=== PATIENT | female | born 1935 | race Caucasian/White ===

== ENCOUNTER 2020-09-13 09:27 | Inpatient (IN) ==
[2020-09-13] MEDS ORDERED: Morphine Sulfate 2 MG/ML SYRINGE IVP ONE (10:34)
[2020-09-13] MEDS ORDERED: Ondansetron 4 MG/2 ML VIAL IVP ONE (10:34)
[2020-09-13 10:43] LABS: Bacteria,Urine Moderate per hpf (None-Few); Bilirubin,Urine Negative (Negative); Blood,Urine Negative (Negative); Clarity,Urine Turbid (Clear); Color,Urine Yellow (Yellow); Glucose,Urine (UA) Normal (Normal); Ketones,Urine Negative (Negative); Leukocyte Esterase,Urine Large (Negative); Mucus,Urine Few per lpf (None-Few); Nitrite,Urine Negative (Negative); PH,Urine 6.5 pH Units (5.0-8.0); Protein,Urine 30 mg/dL (Neg-Trace); WBC,Urine TNTC per hpf (0-3)
[2020-09-13] MEDS ORDERED: cefTRIAXone 1,000 MG in Water for inj. (sterile) 10 ML IVP ONE (12:12)
[2020-09-13 12:24] LABS: Hemoglobin 13.4 g/dL (11.5-15.4); Immature Granulocytes % 0.3 % (0-4)
[2020-09-13] MEDS: Morphine Sulfate 2 MG/ML SYRINGE IVP ONE ×2 (12:24→13:43)
[2020-09-13 12:26] LABS: Basophils % 0.2 %; Eosinophils % 0.3 %; Hematocrit 39.2 % (35.3-44.9); Immature Platelets 2.1 % (1.1-6.1); Lymphocytes # 1.2 K/mcL (0.6-4.6); Lymphocytes % 12.9 %; Mean Corpuscular HGB Conc 34.2 g/dL (31.6-35.5); Mean Corpuscular Hemoglobin 30.4 pg (28.0-33.3); Mean Corpuscular Volume 88.9 fL (83.0-100.0); Monocytes # 0.8 K/mcL (0.0-1.3); Monocytes % 7.9 %; Neutrophils # 7.5 K/mcL (1.6-8.9); Platelet Count 128 K/mcL (140-400); Red Blood Count 4.41 M/mcL (3.82-4.97); Red Cell Distribution Width 12.8 % (11.5-14.5); Segmented Neutrophils % 78.4 %; White Blood Count 9.6 K/mcL (4.3-11.1)
[2020-09-13 12:33] LABS: BUN/Creatinine Ratio 26 (6-26); Blood Urea Nitrogen 28 mg/dL (8-23); Calcium 9.4 mg/dL (8.6-10.3); Carbon Dioxide 23 mEq/L (23-29); Chloride 97 mEq/L (98-107); Glucose 101 mg/dL (70-105); Osmolality,Calculated 270 (280-300); Potassium 3.5 mEq/L (3.5-5.1); Sodium 127 mEq/L (136-145); Troponin I < 0.03 ng/mL (< 0.04); eGFR For African Americans 59 (> 60); eGFR For Non-African Americans 49 (> 60)
[2020-09-13] MEDS: Lidocaine -MPF 2% 5 ML VIAL INFILT ONE ×2 (14:09→14:48)
[2020-09-13] MEDS ORDERED: 0.9 % Sodium Chloride 1,000 ML IVC ONE (14:21)
[2020-09-13] MEDS ORDERED: Ondansetron 4 MG/2 ML VIAL IVP PRN (14:43)
[2020-09-13] MEDS ORDERED: Naloxone 0.4 MG/ML INJ IVP PRN (14:43)
[2020-09-13] MEDS ORDERED: 0.9 % Sodium Chloride 1,000 ML IVC SCH (14:45)
[2020-09-13] MEDS ORDERED: *HR* HYDROmorphone PF 0.5 MG/0.5 ML SYRINGE IVP PRN (14:47)
[2020-09-13] MEDS ORDERED: Perflutren Lipid Microsphere 1.3 ML in 0.9 % Sodium Chloride 8.7 ML IVP PRN (14:47)
[2020-09-13] MEDS: *HR* Heparin 5,000 UNIT/ML VIAL SQ SCH (17:32)
[2020-09-13] MEDS ORDERED: *HR* LORazepam 2 MG/ML VIAL IVP ONE (20:18)
[2020-09-14 02:15] LABS: Basophils % 0.1 %; Hematocrit 37.9 % (35.3-44.9); Hemoglobin 12.4 g/dL (11.5-15.4); Immature Granulocytes % 0.4 % (0-4); Lymphocytes # 0.9 K/mcL (0.6-4.6); Lymphocytes % 8.6 %; Mean Corpuscular HGB Conc 32.7 g/dL (31.6-35.5); Mean Corpuscular Volume 91.5 fL (83.0-100.0); Mean Platelet Volume 9.8 fL (9.4-12.4); Monocytes # 0.9 K/mcL (0.0-1.3); Monocytes % 8.1 %; Neutrophils # 8.7 K/mcL (1.6-8.9); Platelet Count 107 K/mcL (140-400); Red Blood Count 4.14 M/mcL (3.82-4.97); Segmented Neutrophils % 82.8 %; White Blood Count 10.5 K/mcL (4.3-11.1)
[2020-09-14 02:35] LABS: BUN/Creatinine Ratio 29 (6-26); Blood Urea Nitrogen 28 mg/dL (8-23); Calcium 9.1 mg/dL (8.6-10.3); Carbon Dioxide 26 mEq/L (23-29); Chloride 101 mEq/L (98-107); Glucose 125 mg/dL (70-105); Osmolality,Calculated 279 (280-300); Potassium 3.4 mEq/L (3.5-5.1); Sodium 131 mEq/L (136-145); eGFR For African Americans > 60 (> 60); eGFR For Non-African Americans 54 (> 60)
[2020-09-14] MEDS: *HR* HYDROmorphone (PF) 1 MG/ML SYRINGE IVP PRN (02:44)
[2020-09-14] MEDS: *HR* Heparin 5,000 UNIT/ML VIAL SQ SCH ×2 (05:18→17:57)
[2020-09-14] MEDS: cefTRIAXone 1,000 MG in Water for inj. (sterile) 10 ML IVP SCH (09:32)
[2020-09-15 01:49] LABS: Mean Corpuscular HGB Conc 32.6 g/dL (31.6-35.5); Red Cell Distribution Width 13.2 % (11.5-14.5)
[2020-09-15 01:51] LABS: Hematocrit 33.7 % (35.3-44.9); Immature Platelets 1.9 % (1.1-6.1); Mean Corpuscular Hemoglobin 30.6 pg (28.0-33.3); Mean Corpuscular Volume 93.6 fL (83.0-100.0); Mean Platelet Volume 10.1 fL (9.4-12.4); Red Blood Count 3.6 M/mcL (3.82-4.97); White Blood Count 8.8 K/mcL (4.3-11.1)
[2020-09-15 02:09] LABS: BUN/Creatinine Ratio 25 (6-26); Blood Urea Nitrogen 25 mg/dL (8-23); Calcium 9.1 mg/dL (8.6-10.3); Carbon Dioxide 25 mEq/L (23-29); Chloride 100 mEq/L (98-107); Glucose 98 mg/dL (70-105); Osmolality,Calculated 272 (280-300); Potassium 3.9 mEq/L (3.5-5.1); Sodium 129 mEq/L (136-145); eGFR For African Americans > 60 (> 60); eGFR For Non-African Americans 52 (> 60)
[2020-09-15] MEDS: *HR* Heparin 5,000 UNIT/ML VIAL SQ SCH ×2 (05:35→17:51)
[2020-09-15] MEDS: *HR* HYDROmorphone (PF) 1 MG/ML SYRINGE IVP PRN (06:44)
[2020-09-15] MEDS ORDERED: Ringers Solution, Lactated 1,000 ML IVC SCH ×2 (07:15→11:10)
[2020-09-15] MEDS ORDERED: Dexamethasone 4 MG/ML VIAL ONE (07:18)
[2020-09-15] MEDS ORDERED: Lidocaine -MPF 2% 2 ML VIAL ONE (07:18)
[2020-09-15] MEDS ORDERED: Ondansetron 4 MG/2 ML VIAL ONE (07:18)
[2020-09-15] MEDS ORDERED: *HR* FentaNYL (PF) 100 MCG/2 ML VIAL ONE (07:19)
[2020-09-15] MEDS ORDERED: *HR* Propofol 200 MG/20 ML VIAL IVP ONE (07:19)
[2020-09-15] MEDS: cefTRIAXone 1,000 MG in Water for inj. (sterile) 10 ML IVP SCH ×2 (07:28→08:14)
[2020-09-15] MEDS ORDERED: Ropivacaine/PF 0.5% 30 ML VIAL ONE (07:28)
[2020-09-15] MEDS ORDERED: *HR* PHENYLEPHRINE 1,000 MCG/10 ML SYRINGE IVP ONE ×2 (08:26→08:42)
[2020-09-15] MEDS ORDERED: *HR* Phenylephrine 10 MG/ML VIAL ONE (08:55)
[2020-09-15] MEDS: *HR* HYDROmorphone PF 0.5 MG/0.5 ML SYRINGE IVP PRN ×3 (10:54→11:04)
[2020-09-15] MEDS ORDERED: 0.9 % Sodium Chloride 1,000 ML IVC SCH ×2 (11:00→11:10)
[2020-09-15] MEDS ORDERED: Perflutren Lipid Microsphere 1.3 ML in 0.9 % Sodium Chloride 8.7 ML IVP PRN (11:10)
[2020-09-15] MEDS ORDERED: Naloxone 0.4 MG/ML INJ IVP PRN (11:10)
[2020-09-15] MEDS ORDERED: *HR* HYDROmorphone PF 0.5 MG/0.5 ML SYRINGE IVP PRN (11:10)
[2020-09-15] MEDS ORDERED: *HR* HYDROmorphone (PF) 1 MG/ML SYRINGE IVP PRN (11:10)
[2020-09-15] MEDS ORDERED: Ondansetron 4 MG/2 ML VIAL IVP PRN (11:10)
[2020-09-16 04:40] LABS: Mean Corpuscular Volume 92.6 fL (83.0-100.0); Red Cell Distribution Width 12.8 % (11.5-14.5)
[2020-09-16 04:42] LABS: Hematocrit 31.1 % (35.3-44.9); Hemoglobin 10.2 g/dL (11.5-15.4); Immature Platelets 2.6 % (1.1-6.1); Mean Corpuscular HGB Conc 32.8 g/dL (31.6-35.5); Mean Corpuscular Hemoglobin 30.4 pg (28.0-33.3); Mean Platelet Volume 10.1 fL (9.4-12.4); Red Blood Count 3.36 M/mcL (3.82-4.97); White Blood Count 9.2 K/mcL (4.3-11.1)
[2020-09-16] MEDS: *HR* Heparin 5,000 UNIT/ML VIAL SQ SCH ×2 (04:49→17:02)
[2020-09-16 04:51] LABS: BUN/Creatinine Ratio 32 (6-26); Blood Urea Nitrogen 25 mg/dL (8-23); Calcium 8.7 mg/dL (8.6-10.3); Carbon Dioxide 27 mEq/L (23-29); Chloride 102 mEq/L (98-107); Glucose 102 mg/dL (70-105); Osmolality,Calculated 277 (280-300); Potassium 4.1 mEq/L (3.5-5.1); Sodium 131 mEq/L (136-145); eGFR For African Americans > 60 (> 60); eGFR For Non-African Americans > 60 (> 60)
[2020-09-16] MEDS: cefTRIAXone 1,000 MG in Water for inj. (sterile) 10 ML IVP SCH (08:14)
[2020-09-16] MEDS: Acetaminophen 325 MG TABLET PO PRN (17:01)
[2020-09-17] MEDS ORDERED: VISINE TEARS DROPS 15 ML BOTH EYES PRN (05:41)
[2020-09-17] MEDS: *HR* Heparin 5,000 UNIT/ML VIAL SQ SCH ×2 (06:26→18:18)
[2020-09-17] MEDS ORDERED: Artificial Tears SOLN 15 ML BOTTLE BOTH EYES PRN (07:00)
[2020-09-17] MEDS: cefTRIAXone 1,000 MG in Water for inj. (sterile) 10 ML IVP SCH (07:44)
[2020-09-17] MEDS: polyethylene glycoL 3350 17 GM POWD.PACK PO SCH ×2 (09:49→22:40)
[2020-09-17] MEDS: Sennosides/Docusate Sodium TABLET PO SCH (22:39)
[2020-09-18] MEDS: Acetaminophen 325 MG TABLET PO PRN (04:04)
[2020-09-18] MEDS: *HR* Heparin 5,000 UNIT/ML VIAL SQ SCH (06:25)
[2020-09-18] MEDS: Sennosides/Docusate Sodium TABLET PO SCH (09:00)
[2020-09-18] MEDS: polyethylene glycoL 3350 17 GM POWD.PACK PO SCH (09:00)
[2020-09-18] MEDS ORDERED: Milk and Molasses Enema 200 ML RC ONE (09:08)
[2020-09-18] MEDS: cefTRIAXone 1,000 MG in Water for inj. (sterile) 10 ML IVP SCH (09:22)
[2020-09-18] MEDS ORDERED: 0.9 % Sodium Chloride 1,000 ML IVC ONE (10:04)
[2020-09-18] MEDS ORDERED: *HR* Metoprolol 5 MG/5 ML VIAL IVP ONE (10:05)
[2020-09-18] MEDS ORDERED: Metoprolol XL (24 HR) Succ 25 MG TAB.ER.24H PO SCH (10:15)
[2020-09-18] MEDS ORDERED: *HR* Rivaroxaban 15 MG TABLET PO SCH ×2 (17:00)
[2020-09-18] MEDS ORDERED: *HR* Rivaroxaban 10 MG TABLET PO SCH (18:45)
[2020-09-18 19:05] LABS: Influenza A PCR Negative (Negative); Influenza B PCR Negative (Negative); Resp. Syncytial Virus PCR Negative (Negative)
[2020-09-18 19:06] LABS: SARS-CoV-2 by PCR (In House) Negative (Negative)
[2020-09-18 19:19] VITALS: BP 102/67
== END 2020-09-18 20:25 | disposition home health service (06) | DRG 493 ==
LOC: EMEROOARM 09:27 → 3NENU 09:27 → SUATTDRO 13:43 → 3NENU 15:50 → SUATTDRO 09-14 14:44
PROVIDERS: ADMIT Internal Medicine; ATTEND Student in an Organized Health Care Education/Training Program

== ENCOUNTER 2020-10-23 18:05 | Inpatient (IN) ==
[2020-10-23] MEDS ORDERED: Naloxone 0.4 MG/ML INJ IVP PRN (22:23)
[2020-10-23] MEDS ORDERED: Ondansetron 4 MG/2 ML VIAL IVP PRN (22:23)
[2020-10-24 03:54] LABS: Basophils % 0.4 %; Eosinophils # 0.2 K/mcL (0.0-0.6); Eosinophils % 2.1 %; Hematocrit 33.5 % (35.3-44.9); Hemoglobin 10.5 g/dL (11.5-15.4); Immature Granulocytes % 0.4 % (0-4); Lymphocytes # 1.1 K/mcL (0.6-4.6); Lymphocytes % 11.8 %; Mean Corpuscular HGB Conc 31.3 g/dL (31.6-35.5); Mean Corpuscular Hemoglobin 29.8 pg (28.0-33.3); Mean Corpuscular Volume 95.2 fL (83.0-100.0); Mean Platelet Volume 8.7 fL (9.4-12.4); Monocytes # 0.7 K/mcL (0.0-1.3); Monocytes % 7.8 %; Neutrophils # 7.1 K/mcL (1.6-8.9); Platelet Count 205 K/mcL (140-400); Red Blood Count 3.52 M/mcL (3.82-4.97); Red Cell Distribution Width 13.3 % (11.5-14.5); Segmented Neutrophils % 77.5 %; White Blood Count 9.2 K/mcL (4.3-11.1)
[2020-10-24 04:14] LABS: Alanine Aminotransferase 13 Units/L (7-52); Albumin 2.9 g/dL (3.5-5.7); Albumin/Globulin Ratio 0.8 (1.1-2.2); Alkaline Phosphatase 68 Units/L (34-104); Aspartate Amino Transferase 18 Units/L (13-39); BUN/Creatinine Ratio 27 (6-26); Bilirubin,Total 0.6 mg/dL (0.3-1.0); Blood Urea Nitrogen 17 mg/dL (8-23); Calcium 8.5 mg/dL (8.6-10.3); Carbon Dioxide 22 mEq/L (23-29); Chloride 110 mEq/L (98-107); Globulin 3.5 g/dL (2.4-3.5); Glucose 99 mg/dL (70-105); Osmolality,Calculated 290 (280-300); Phosphorous 1.8 mg/dL (2.7-4.5); Sodium 139 mEq/L (136-145); Total Protein 6.4 g/dL (6.4-8.9); Troponin I < 0.03 ng/mL (< 0.04); eGFR For African Americans > 60 (> 60); eGFR For Non-African Americans > 60 (> 60)
[2020-10-24] MEDS ORDERED: Isovue-370 500 ML BOTTLE IVP ONE (07:37)
[2020-10-24] MEDS ORDERED: Sennosides/Docusate Sodium TABLET PO SCH (09:00)
[2020-10-24] MEDS ORDERED: Perflutren Lipid Microsphere 1.3 ML in 0.9 % Sodium Chloride 8.7 ML IVP PRN (09:22)
[2020-10-24] MEDS: Levalbuterol Neb 1.25 MG/3 ML IH SCH ×3 (09:53→22:42)
[2020-10-24] MEDS: *HR* Digoxin 0.5 MG/2 ML AMPUL IVP ONE ×2 (10:03→12:30)
[2020-10-24] MEDS ORDERED: *HR* LORazepam 0.5 MG TABLET PO PRN (12:43)
[2020-10-24] MEDS ORDERED: Sennosides/Docusate Sodium TABLET PO PRN (12:43)
[2020-10-24] MEDS: *HR* Rivaroxaban 10 MG TABLET PO SCH (16:03)
[2020-10-24 16:50] LABS: Total Protein,Pleural Fluid 3.3 g/dL
[2020-10-24 17:26] LABS: Appearance of Pleural Fl Cloudy (Clear)
[2020-10-24 17:29] LABS: Basophils,Pleural Fluid 0 %; Eosinophils,Pleural Fluid 0 %
[2020-10-24] MEDS ORDERED: Ondansetron ODT 4 MG TAB.RAPDIS SL SCH (18:00)
[2020-10-24 19:45] LABS: Lactate Dehydrogenase 155 Units/L (140-271); Total Protein 6.4 g/dL (6.4-8.9)
[2020-10-24] MEDS ORDERED: *HR* Metoprolol 5 MG/5 ML VIAL IVP ONE (20:17)
[2020-10-24] MEDS: Mirtazapine 15 MG TABLET PO SCH (20:44)
[2020-10-24] MEDS: Furosemide 20 MG/2 ML VIAL IVP SCH (20:44)
[2020-10-25 00:43] LABS: Basophils % 0.2 %; Eosinophils # 0.2 K/mcL (0.0-0.6); Eosinophils % 1.5 %; Hemoglobin 11.3 g/dL (11.5-15.4); Immature Granulocytes % 0.5 % (0-4); Lymphocytes # 1.3 K/mcL (0.6-4.6); Mean Corpuscular HGB Conc 32.3 g/dL (31.6-35.5); Mean Corpuscular Hemoglobin 30.7 pg (28.0-33.3); Mean Corpuscular Volume 95.1 fL (83.0-100.0); Monocytes # 0.9 K/mcL (0.0-1.3); Monocytes % 8.5 %; Neutrophils # 7.7 K/mcL (1.6-8.9); Platelet Count 222 K/mcL (140-400); Red Blood Count 3.68 M/mcL (3.82-4.97); Red Cell Distribution Width 13.2 % (11.5-14.5); Segmented Neutrophils % 76.3 %; White Blood Count 10.1 K/mcL (4.3-11.1)
[2020-10-25 00:59] LABS: BUN/Creatinine Ratio 23 (6-26); Blood Urea Nitrogen 15 mg/dL (8-23); Calcium 8.2 mg/dL (8.6-10.3); Carbon Dioxide 25 mEq/L (23-29); Chloride 107 mEq/L (98-107); Glucose 97 mg/dL (70-105); Magnesium 1.9 mg/dL (1.6-2.6); Osmolality,Calculated 285 (280-300); Phosphorous 2.2 mg/dL (2.7-4.5); Potassium 3.5 mEq/L (3.5-5.1); Sodium 137 mEq/L (136-145); eGFR For African Americans > 60 (> 60); eGFR For Non-African Americans > 60 (> 60)
[2020-10-25] MEDS: Levalbuterol Neb 1.25 MG/3 ML IH SCH ×4 (04:08→21:49)
[2020-10-25] MEDS: Loratadine 10 MG TABLET PO SCH (08:34)
[2020-10-25] MEDS: Cholecalciferol (D-3) 1,000 UNIT (25MCG) TABLET PO SCH (08:35)
[2020-10-25] MEDS: Furosemide 20 MG/2 ML VIAL IVP SCH ×2 (08:35→20:52)
[2020-10-25] MEDS ORDERED: Isovue-370 500 ML BOTTLE IVP ONE (14:23)
[2020-10-25] MEDS: *HR* Rivaroxaban 10 MG TABLET PO SCH (16:30)
[2020-10-25] MEDS ORDERED: *HR* Digoxin 0.5 MG/2 ML AMPUL IVP ONE (18:20)
[2020-10-25] MEDS: Mirtazapine 15 MG TABLET PO SCH (20:52)
[2020-10-26] MEDS: Levalbuterol Neb 1.25 MG/3 ML IH SCH ×4 (03:16→21:34)
[2020-10-26] MEDS: Loratadine 10 MG TABLET PO SCH (08:09)
[2020-10-26] MEDS: Cholecalciferol (D-3) 1,000 UNIT (25MCG) TABLET PO SCH (08:09)
[2020-10-26 08:42] LABS: BUN/Creatinine Ratio 20 (6-26); Blood Urea Nitrogen 15 mg/dL (8-23); Calcium 8.7 mg/dL (8.6-10.3); Carbon Dioxide 29 mEq/L (23-29); Chloride 101 mEq/L (98-107); Glucose 95 mg/dL (70-105); Osmolality,Calculated 283 (280-300); Sodium 136 mEq/L (136-145); eGFR For African Americans > 60 (> 60); eGFR For Non-African Americans > 60 (> 60)
[2020-10-26] MEDS: Furosemide 20 MG/2 ML VIAL IVP SCH (09:33)
[2020-10-26 12:45] LABS: Magnesium 1.8 mg/dL (1.6-2.6); Phosphorous 2.5 mg/dL (2.7-4.5)
[2020-10-26] MEDS: Acetaminophen 325 MG TABLET PO PRN (14:14)
[2020-10-26] MEDS: *HR* Rivaroxaban 10 MG TABLET PO SCH (17:54)
[2020-10-26] MEDS: Mirtazapine 15 MG TABLET PO SCH (21:11)
[2020-10-26 22:51] LABS: Fluid Source for Cholesterol PLEURAL FLUID
[2020-10-27] MEDS: Levalbuterol Neb 1.25 MG/3 ML IH SCH ×4 (03:37→22:09)
[2020-10-27 07:47] LABS: BUN/Creatinine Ratio 23 (6-26); Blood Urea Nitrogen 17 mg/dL (8-23); Calcium 8.5 mg/dL (8.6-10.3); Carbon Dioxide 29 mEq/L (23-29); Chloride 102 mEq/L (98-107); Glucose 93 mg/dL (70-105); Magnesium 1.8 mg/dL (1.6-2.6); Osmolality,Calculated 281 (280-300); Potassium 3.1 mEq/L (3.5-5.1); Sodium 135 mEq/L (136-145); eGFR For African Americans > 60 (> 60); eGFR For Non-African Americans > 60 (> 60)
[2020-10-27] MEDS: Loratadine 10 MG TABLET PO SCH (09:19)
[2020-10-27] MEDS: Cholecalciferol (D-3) 1,000 UNIT (25MCG) TABLET PO SCH (09:19)
[2020-10-27] MEDS: Furosemide 20 MG TABLET PO SCH (09:19)
[2020-10-27 10:16] LABS: Cholesterol,Body Fluid 54 mg/dL
[2020-10-27] MEDS ORDERED: Potassium Phosphate 44 MEQ in 0.9 % Sodium Chloride 250 ML IVPB ONE (11:13)
[2020-10-27] MEDS: *HR* Rivaroxaban 10 MG TABLET PO SCH (15:41)
[2020-10-27] MEDS: Acetaminophen 325 MG TABLET PO PRN (15:41)
[2020-10-27] MEDS: Mirtazapine 15 MG TABLET PO SCH (21:57)
[2020-10-28 01:42] LABS: BUN/Creatinine Ratio 28 (6-26); Blood Urea Nitrogen 22 mg/dL (8-23); Calcium 8.8 mg/dL (8.6-10.3); Carbon Dioxide 26 mEq/L (23-29); Chloride 102 mEq/L (98-107); Glucose 99 mg/dL (70-105); Magnesium 1.9 mg/dL (1.6-2.6); Osmolality,Calculated 283 (280-300); Phosphorous 3.3 mg/dL (2.7-4.5); Potassium 3.4 mEq/L (3.5-5.1); Sodium 135 mEq/L (136-145); eGFR For African Americans > 60 (> 60); eGFR For Non-African Americans > 60 (> 60)
[2020-10-28] MEDS: Levalbuterol Neb 1.25 MG/3 ML IH SCH ×4 (04:15→22:21)
[2020-10-28] MEDS: Cholecalciferol (D-3) 1,000 UNIT (25MCG) TABLET PO SCH (08:33)
[2020-10-28] MEDS: Furosemide 20 MG TABLET PO SCH (08:33)
[2020-10-28] MEDS: Loratadine 10 MG TABLET PO SCH (08:33)
[2020-10-28] MEDS ORDERED: Levalbuterol Neb 1.25 MG/3 ML ONE (09:36)
[2020-10-28] MEDS: Acetaminophen 325 MG TABLET PO PRN ×2 (10:38→20:41)
[2020-10-28 11:59] LABS: Bacteria,Urine Few per hpf (None-Few); Bilirubin,Urine Negative (Negative); Blood,Urine Small (Negative); Clarity,Urine Clear (Clear); Color,Urine Yellow (Yellow); Glucose,Urine (UA) Normal (Normal); Ketones,Urine Negative (Negative); Leukocyte Esterase,Urine Negative (Negative); Mucus,Urine Few per lpf (None-Few); Nitrite,Urine Negative (Negative); PH,Urine 6.5 pH Units (5.0-8.0); Protein,Urine Trace mg/dL (Neg-Trace); RBC,Urine 15-30 per hpf (0-3); Specific Gravity,Urine 1.018 (1.010-1.025); WBC,Urine 0-3 per hpf (0-3)
[2020-10-28] MEDS: *HR* Rivaroxaban 10 MG TABLET PO SCH (16:25)
[2020-10-28] MEDS: Melatonin 3 MG TABLET PO PRN (20:42)
[2020-10-28] MEDS: Mirtazapine 15 MG TABLET PO SCH (20:42)
[2020-10-29] MEDS: Levalbuterol Neb 1.25 MG/3 ML IH SCH ×3 (03:35→15:43)
[2020-10-29 05:56] LABS: BUN/Creatinine Ratio 29 (6-26); Blood Urea Nitrogen 24 mg/dL (8-23); Calcium 8.6 mg/dL (8.6-10.3); Carbon Dioxide 27 mEq/L (23-29); Chloride 105 mEq/L (98-107); Glucose 93 mg/dL (70-105); Magnesium 1.8 mg/dL (1.6-2.6); Osmolality,Calculated 288 (280-300); Phosphorous 2.9 mg/dL (2.7-4.5); Potassium 3.4 mEq/L (3.5-5.1); Sodium 137 mEq/L (136-145); eGFR For African Americans > 60 (> 60); eGFR For Non-African Americans > 60 (> 60)
[2020-10-29] MEDS: Furosemide 20 MG TABLET PO SCH (07:51)
[2020-10-29] MEDS: Cholecalciferol (D-3) 1,000 UNIT (25MCG) TABLET PO SCH (07:51)
[2020-10-29] MEDS: Loratadine 10 MG TABLET PO SCH (07:51)
[2020-10-29] MEDS: *HR* Rivaroxaban 10 MG TABLET PO SCH (16:45)
[2020-10-29] MEDS ORDERED: Levalbuterol Neb 1.25 MG/3 ML IH PRN (20:01)
[2020-10-29] MEDS: Melatonin 3 MG TABLET PO PRN (21:03)
[2020-10-29] MEDS: Mirtazapine 15 MG TABLET PO SCH (21:03)
[2020-10-30] MEDS: Cholecalciferol (D-3) 1,000 UNIT (25MCG) TABLET PO SCH (08:08)
[2020-10-30] MEDS: Loratadine 10 MG TABLET PO SCH (08:08)
[2020-10-30] MEDS: Furosemide 20 MG TABLET PO SCH (08:08)
[2020-10-30] MEDS: *HR* Rivaroxaban 10 MG TABLET PO SCH (16:44)
[2020-10-30] MEDS: Mirtazapine 15 MG TABLET PO SCH (19:12)
[2020-10-31 07:14] LABS: Hematocrit 35.2 % (35.3-44.9); Hemoglobin 11.5 g/dL (11.5-15.4)
[2020-10-31 07:41] LABS: BUN/Creatinine Ratio 32 (6-26); Blood Urea Nitrogen 27 mg/dL (8-23); Calcium 8.9 mg/dL (8.6-10.3); Carbon Dioxide 25 mEq/L (23-29); Chloride 104 mEq/L (98-107); Glucose 93 mg/dL (70-105); Magnesium 1.9 mg/dL (1.6-2.6); Osmolality,Calculated 283 (280-300); Phosphorous 2.4 mg/dL (2.7-4.5); Potassium 3.4 mEq/L (3.5-5.1); Sodium 134 mEq/L (136-145); eGFR For African Americans > 60 (> 60); eGFR For Non-African Americans > 60 (> 60)
[2020-10-31] MEDS: Cholecalciferol (D-3) 1,000 UNIT (25MCG) TABLET PO SCH (12:31)
[2020-10-31] MEDS: Loratadine 10 MG TABLET PO SCH (12:32)
[2020-10-31] MEDS: Furosemide 20 MG TABLET PO SCH (12:35)
[2020-10-31] MEDS: Metoclopramide 10 MG/2 ML VIAL IVP SCH ×3 (12:57→17:18)
[2020-10-31] MEDS: Simethicone 80 MG TAB.CHEW PO SCH (21:31)
[2020-10-31] MEDS: Mirtazapine 15 MG TABLET PO SCH (21:31)
[2020-10-31] MEDS: *HR* Rivaroxaban 10 MG TABLET PO SCH (21:32)
[2020-11-01] MEDS: Metoclopramide 10 MG/2 ML VIAL IVP SCH ×2 (00:49→05:57)
[2020-11-01] MEDS: Furosemide 20 MG TABLET PO SCH ×2 (08:19→08:48)
[2020-11-01] MEDS: Simethicone 80 MG TAB.CHEW PO SCH (08:19)
[2020-11-01] MEDS: Loratadine 10 MG TABLET PO SCH (08:19)
[2020-11-01] MEDS: Cholecalciferol (D-3) 1,000 UNIT (25MCG) TABLET PO SCH (08:19)
[2020-11-01 09:32] LABS: BUN/Creatinine Ratio 30 (6-26); Blood Urea Nitrogen 24 mg/dL (8-23); Carbon Dioxide 27 mEq/L (23-29); Chloride 102 mEq/L (98-107); Glucose 109 mg/dL (70-105); Magnesium 1.9 mg/dL (1.6-2.6); Osmolality,Calculated 285 (280-300); Phosphorous 2.9 mg/dL (2.7-4.5); Potassium 3.3 mEq/L (3.5-5.1); Sodium 135 mEq/L (136-145); eGFR For African Americans > 60 (> 60); eGFR For Non-African Americans > 60 (> 60)
[2020-11-01 12:04] VITALS: BP 117/82
== END 2020-11-01 13:19 | disposition home health service (06) | DRG 291 ==
LOC: INTOOBSV 21:50 → 2NENU 21:50 → SUATTDRO 21:50
PROVIDERS: ADMIT Internal Medicine; ATTEND Internal Medicine

== ENCOUNTER 2021-05-26 19:11 | Inpatient (IN) ==
[2021-05-26 19:39] LABS: Basophils % 0.1 %; Eosinophils % 0.2 %; Hematocrit 39.1 % (35.3-44.9); Hemoglobin 12.8 g/dL (11.5-15.4); Immature Granulocytes % 0.3 % (0-4); Lymphocytes # 1.8 K/mcL (0.6-4.6); Lymphocytes % 15.1 %; Mean Corpuscular HGB Conc 32.7 g/dL (31.6-35.5); Mean Corpuscular Hemoglobin 30.7 pg (28.0-33.3); Mean Corpuscular Volume 93.8 fL (83.0-100.0); Monocytes # 1.3 K/mcL (0.0-1.3); Monocytes % 10.6 %; Neutrophils # 8.8 K/mcL (1.6-8.9); Platelet Count 187 K/mcL (140-400); Red Blood Count 4.17 M/mcL (3.82-4.97); Red Cell Distribution Width 12.7 % (11.5-14.5); Segmented Neutrophils % 73.7 %; White Blood Count 11.9 K/mcL (4.3-11.1)
[2021-05-26 19:46] LABS: INR 2.9; Prothrombin Time 31.8 Seconds (9.4-12.1)
[2021-05-26 19:56] LABS: Alanine Aminotransferase 46 Units/L (7-52); Albumin 2.9 g/dL (3.5-5.7); Albumin/Globulin Ratio 0.6 (1.1-2.2); Alkaline Phosphatase 97 Units/L (34-104); Aspartate Amino Transferase 32 Units/L (13-39); BUN/Creatinine Ratio 27 (6-26); Bilirubin,Direct 0.2 mg/dL (0.0-0.2); Bilirubin,Indirect 0.5 mg/dL (0.0-1.0); Bilirubin,Total 0.7 mg/dL (0.3-1.0); Blood Urea Nitrogen 25 mg/dL (8-23); Calcium 8.9 mg/dL (8.6-10.3); Carbon Dioxide 28 mEq/L (23-29); Chloride 96 mEq/L (98-107); Globulin 5.1 g/dL (2.4-3.5); Glucose 123 mg/dL (70-105); Osmolality,Calculated 274 (280-300); Potassium 3.1 mEq/L (3.5-5.1); Sodium 129 mEq/L (136-145); Troponin I < 0.03 ng/mL (< 0.04); eGFR For African Americans > 60 (> 60); eGFR For Non-African Americans 58 (> 60)
[2021-05-26] MEDS ORDERED: Furosemide 20 MG/2 ML VIAL IVP ONE (20:12)
[2021-05-26] MEDS ORDERED: Isovue-370 500 ML BOTTLE IVP ONE (20:42)
[2021-05-26 20:44] LABS: Influenza A PCR Negative (Negative); Influenza B PCR Negative (Negative); Resp. Syncytial Virus PCR Negative (Negative)
[2021-05-26 20:46] LABS: SARS-CoV-2 by PCR (In House) Negative (Negative)
[2021-05-26] MEDS ORDERED: Melatonin 3 MG TABLET PO PRN (21:19)
[2021-05-26] MEDS ORDERED: Naloxone 0.4 MG/ML INJ IVP PRN (21:19)
[2021-05-26] MEDS ORDERED: Ondansetron ODT 4 MG TAB.RAPDIS SL PRN (21:19)
[2021-05-26] MEDS ORDERED: *HR* Metoprolol 5 MG/5 ML VIAL IVP PRN (21:30)
[2021-05-26] MEDS ORDERED: *HR* Heparin 5,000 UNIT/ML VIAL IVP PRN ×2 (21:56)
[2021-05-26] MEDS ORDERED: *HR* Heparin 5,000 UNIT/ML VIAL IVP ONE (21:56)
[2021-05-26] MEDS ORDERED: Heparin 25,000UNIT/250ML 1/2NS 25,000 UNIT/250 ML IV.SOLN IVC SCH ×2 (22:00→22:30)
[2021-05-26] MEDS ORDERED: Heparin 25,000 UNIT/250 ML 25,000 UNIT/250 ML IV.SOLN IVC SCH (22:30)
[2021-05-26] MEDS ORDERED: Perflutren Lipid Microsphere 1.3 ML in 0.9 % Sodium Chloride 8.7 ML IVP PRN (23:08)
[2021-05-26] MEDS ORDERED: Potassium Chloride Elixir 20 MEQ/15 ML UDC PO ONE (23:35)
[2021-05-27 01:39] LABS: Hematocrit 41.2 % (35.3-44.9); Hemoglobin 13.5 g/dL (11.5-15.4); Mean Corpuscular HGB Conc 32.8 g/dL (31.6-35.5); Mean Corpuscular Hemoglobin 30.8 pg (28.0-33.3); Mean Corpuscular Volume 93.8 fL (83.0-100.0); Mean Platelet Volume 9.2 fL (9.4-12.4); Platelet Count 182 K/mcL (140-400); Red Blood Count 4.39 M/mcL (3.82-4.97); Red Cell Distribution Width 12.7 % (11.5-14.5); White Blood Count 15.2 K/mcL (4.3-11.1)
[2021-05-27 01:51] LABS: Prothrombin Time 21.9 Seconds (9.4-12.1)
[2021-05-27 01:53] LABS: Activated Partial Thrombo Time 68.6 Seconds (26.0-36.0)
[2021-05-27 02:04] LABS: BUN/Creatinine Ratio 30 (6-26); Blood Urea Nitrogen 24 mg/dL (8-23); Calcium 9.2 mg/dL (8.6-10.3); Carbon Dioxide 23 mEq/L (23-29); Chloride 98 mEq/L (98-107); Glucose 133 mg/dL (70-105); Osmolality,Calculated 274 (280-300); Potassium 3.4 mEq/L (3.5-5.1); Sodium 129 mEq/L (136-145); eGFR For African Americans > 60 (> 60); eGFR For Non-African Americans > 60 (> 60)
[2021-05-27] MEDS ORDERED: cefTRIAXone 1,000 MG in 0.9 % Sodium Chloride Mini Bag 100 ML IVPB SCH ×2 (04:00→04:30)
[2021-05-27 06:37] LABS: Lactate Dehydrogenase 134 Units/L (140-271); Total Protein 7.9 g/dL (6.4-8.9)
[2021-05-27 07:04] LABS: INR 1.8
[2021-05-27] MEDS: Acetaminophen 325 MG TABLET PO PRN (09:30)
[2021-05-27] MEDS: Furosemide 20 MG/2 ML VIAL IVP SCH (09:32)
[2021-05-27 10:56] LABS: Bacteria,Urine Few per hpf (None-Few); Bilirubin,Urine Negative (Negative); Blood,Urine Moderate (Negative); Clarity,Urine Clear (Clear); Color,Urine Yellow (Yellow); Glucose,Urine (UA) Normal (Normal); Ketones,Urine Negative (Negative); Leukocyte Esterase,Urine Negative (Negative); Nitrite,Urine Negative (Negative); Protein,Urine 30 mg/dL (Neg-Trace); RBC,Urine 15-30 per hpf (0-3); Specific Gravity,Urine > 1.030 (1.010-1.025); Urobilinogen,Urine Normal (Normal); WBC,Urine 0-3 per hpf (0-3)
[2021-05-27] MEDS ORDERED: *HR* Heparin 5,000 UNIT/ML VIAL IVP PRN (11:02)
[2021-05-27] MEDS ORDERED: *HR* Heparin 5,000 UNIT/ML VIAL IVP ONE (11:02)
[2021-05-27] MEDS: Albumin 25% 25gram/100mL 25 GM/100 ML IV.SOLN IVPB SCH ×3 (11:23→14:42)
[2021-05-27] MEDS ORDERED: 0.9 % Sodium Chloride 250 ML IVC ONE (14:35)
[2021-05-27] MEDS: Heparin 25,000 UNIT/250 ML 25,000 UNIT/250 ML IV.SOLN IVC SCH (14:43)
[2021-05-27 15:44] LABS: Total Protein,Pleural Fluid 5.3 g/dL
[2021-05-27 17:00] LABS: RBC,Pleural Fluid 158000 RBC/mcL
[2021-05-27 17:40] LABS: Appearance of Pleural Fl Bloody (Clear)
[2021-05-28] MEDS: Piperacillin/Tazobactam 3.375 GM in 0.9 % Sodium Chloride Mini Bag 100 ML IVPB SCH ×3 (00:29→16:35)
[2021-05-28 04:46] LABS: Hematocrit 32.7 % (35.3-44.9); Mean Corpuscular HGB Conc 32.1 g/dL (31.6-35.5); Mean Corpuscular Hemoglobin 30.2 pg (28.0-33.3); Mean Platelet Volume 9.2 fL (9.4-12.4); Platelet Count 130 K/mcL (140-400); Red Blood Count 3.48 M/mcL (3.82-4.97); Red Cell Distribution Width 12.9 % (11.5-14.5)
[2021-05-28 04:56] LABS: Hemoglobin 10.5 g/dL (11.5-15.4); White Blood Count 7.4 K/mcL (4.3-11.1)
[2021-05-28 05:04] LABS: BUN/Creatinine Ratio 33 (6-26); Blood Urea Nitrogen 25 mg/dL (8-23); Calcium 9.4 mg/dL (8.6-10.3); Carbon Dioxide 26 mEq/L (23-29); Chloride 102 mEq/L (98-107); Glucose 84 mg/dL (70-105); Magnesium 1.8 mg/dL (1.6-2.6); Osmolality,Calculated 278 (280-300); Potassium 3.1 mEq/L (3.5-5.1); Sodium 132 mEq/L (136-145); eGFR For African Americans > 60 (> 60); eGFR For Non-African Americans > 60 (> 60)
[2021-05-28] MEDS: Furosemide 20 MG/2 ML VIAL IVP SCH (11:16)
[2021-05-28] MEDS: Acetaminophen 325 MG TABLET PO PRN (12:45)
[2021-05-28] MEDS: Sennosides/Docusate Sodium TABLET PO SCH (13:23)
[2021-05-28] MEDS: Heparin 25,000 UNIT/250 ML 25,000 UNIT/250 ML IV.SOLN IVC SCH ×2 (13:23→21:14)
[2021-05-29] MEDS: Piperacillin/Tazobactam 3.375 GM in 0.9 % Sodium Chloride Mini Bag 100 ML IVPB SCH ×3 (01:48→15:36)
[2021-05-29 05:55] LABS: Basophils % 0.3 %; Eosinophils # 0.1 K/mcL (0.0-0.6); Eosinophils % 2.4 %; Hematocrit 34.1 % (35.3-44.9); Hemoglobin 11.1 g/dL (11.5-15.4); Immature Granulocytes % 0.2 % (0-4); Lymphocytes # 1.2 K/mcL (0.6-4.6); Lymphocytes % 20.3 %; Mean Corpuscular HGB Conc 32.6 g/dL (31.6-35.5); Mean Corpuscular Hemoglobin 30.4 pg (28.0-33.3); Mean Corpuscular Volume 93.4 fL (83.0-100.0); Monocytes # 0.6 K/mcL (0.0-1.3); Monocytes % 9.6 %; Neutrophils # 3.9 K/mcL (1.6-8.9); Platelet Count 142 K/mcL (140-400); Red Blood Count 3.65 M/mcL (3.82-4.97); Red Cell Distribution Width 12.9 % (11.5-14.5); Segmented Neutrophils % 67.2 %; White Blood Count 5.8 K/mcL (4.3-11.1)
[2021-05-29] MEDS: Acetaminophen 325 MG TABLET PO PRN ×3 (05:56→20:46)
[2021-05-29 06:21] LABS: BUN/Creatinine Ratio 33 (6-26); Blood Urea Nitrogen 29 mg/dL (8-23); Calcium 9.3 mg/dL (8.6-10.3); Carbon Dioxide 24 mEq/L (23-29); Chloride 104 mEq/L (98-107); Glucose 84 mg/dL (70-105); Osmolality,Calculated 283 (280-300); Potassium 3.1 mEq/L (3.5-5.1); Sodium 134 mEq/L (136-145); eGFR For African Americans > 60 (> 60); eGFR For Non-African Americans > 60 (> 60)
[2021-05-29] MEDS: *HR* Heparin 5,000 UNIT/ML VIAL IVP PRN ×2 (06:47→13:19)
[2021-05-29] MEDS: Furosemide 20 MG/2 ML VIAL IVP SCH (08:50)
[2021-05-29] MEDS: Sennosides/Docusate Sodium TABLET PO SCH (08:50)
[2021-05-29] MEDS ORDERED: DilTIAZem CD (24hr) 120 MG CAP.ER.24H PO SCH (09:00)
[2021-05-29] MEDS ORDERED: Albumin 25% 25gram/100mL 25 GM/100 ML IV.SOLN IVPB ONE (16:12)
[2021-05-29] MEDS: Albumin Human 5% 12.5 GM/250 ML IV.SOLN IVC SCH ×2 (18:41→20:40)
[2021-05-29] MEDS: Heparin 25,000UNIT/250ML 1/2NS 25,000 UNIT/250 ML IV.SOLN IVC SCH (23:41)
[2021-05-30] MEDS: Piperacillin/Tazobactam 3.375 GM in 0.9 % Sodium Chloride Mini Bag 100 ML IVPB SCH ×3 (01:24→15:27)
[2021-05-30 03:18] LABS: Basophils % 0.5 %; Eosinophils # 0.1 K/mcL (0.0-0.6); Eosinophils % 2.1 %; Hematocrit 32.6 % (35.3-44.9); Hemoglobin 10.5 g/dL (11.5-15.4); Immature Granulocytes % 0.5 % (0-4); Lymphocytes # 0.9 K/mcL (0.6-4.6); Lymphocytes % 14.7 %; Mean Corpuscular HGB Conc 32.2 g/dL (31.6-35.5); Mean Corpuscular Hemoglobin 30.4 pg (28.0-33.3); Mean Corpuscular Volume 94.5 fL (83.0-100.0); Mean Platelet Volume 9.2 fL (9.4-12.4); Monocytes # 0.4 K/mcL (0.0-1.3); Monocytes % 6.2 %; Neutrophils # 4.8 K/mcL (1.6-8.9); Nucleated Red Blood Cells 0.5 /100 WBC (0); Platelet Count 139 K/mcL (140-400); Red Blood Count 3.45 M/mcL (3.82-4.97); Red Cell Distribution Width 12.9 % (11.5-14.5); White Blood Count 6.3 K/mcL (4.3-11.1)
[2021-05-30 03:37] LABS: BUN/Creatinine Ratio 28 (6-26); Blood Urea Nitrogen 24 mg/dL (8-23); Calcium 8.9 mg/dL (8.6-10.3); Carbon Dioxide 23 mEq/L (23-29); Chloride 102 mEq/L (98-107); Glucose 76 mg/dL (70-105); Osmolality,Calculated 279 (280-300); Potassium 2.8 mEq/L (3.5-5.1); Sodium 133 mEq/L (136-145); eGFR For African Americans > 60 (> 60); eGFR For Non-African Americans > 60 (> 60)
[2021-05-30] MEDS: Sennosides/Docusate Sodium TABLET PO SCH (08:28)
[2021-05-30 10:16] LABS: Fluid Source for Cholesterol PLEURAL FLUID
[2021-05-30 12:48] LABS: Magnesium 1.8 mg/dL (1.6-2.6)
[2021-05-30 15:26] LABS: Cholesterol,Body Fluid 83 mg/dL
[2021-05-30] MEDS: *HR* Heparin 5,000 UNIT/ML VIAL IVP PRN (21:12)
[2021-05-31] MEDS: Piperacillin/Tazobactam 3.375 GM in 0.9 % Sodium Chloride Mini Bag 100 ML IVPB SCH ×2 (02:00→09:25)
[2021-05-31] MEDS: Heparin 25,000UNIT/250ML 1/2NS 25,000 UNIT/250 ML IV.SOLN IVC SCH (02:00)
[2021-05-31 06:31] LABS: Basophils % 0.4 %; Eosinophils # 0.2 K/mcL (0.0-0.6); Eosinophils % 3.1 %; Hematocrit 34.3 % (35.3-44.9); Hemoglobin 11.1 g/dL (11.5-15.4); Immature Granulocytes % 0.4 % (0-4); Lymphocytes # 1.1 K/mcL (0.6-4.6); Lymphocytes % 21.4 %; Mean Corpuscular HGB Conc 32.4 g/dL (31.6-35.5); Mean Corpuscular Hemoglobin 30.5 pg (28.0-33.3); Mean Corpuscular Volume 94.2 fL (83.0-100.0); Mean Platelet Volume 8.9 fL (9.4-12.4); Monocytes # 0.4 K/mcL (0.0-1.3); Monocytes % 8.4 %; Neutrophils # 3.3 K/mcL (1.6-8.9); Platelet Count 150 K/mcL (140-400); Red Blood Count 3.64 M/mcL (3.82-4.97); Red Cell Distribution Width 12.9 % (11.5-14.5); Segmented Neutrophils % 66.3 %; White Blood Count 4.9 K/mcL (4.3-11.1)
[2021-05-31 06:49] LABS: BUN/Creatinine Ratio 22 (6-26); Blood Urea Nitrogen 18 mg/dL (8-23); Calcium 9.1 mg/dL (8.6-10.3); Carbon Dioxide 22 mEq/L (23-29); Chloride 105 mEq/L (98-107); Glucose 77 mg/dL (70-105); Osmolality,Calculated 279 (280-300); Potassium 3.2 mEq/L (3.5-5.1); Sodium 134 mEq/L (136-145); eGFR For African Americans > 60 (> 60); eGFR For Non-African Americans > 60 (> 60)
[2021-05-31] MEDS: Sennosides/Docusate Sodium TABLET PO SCH ×2 (09:24→12:58)
[2021-05-31] MEDS: *HR* Rivaroxaban 15 MG TABLET PO SCH (21:08)
[2021-06-01 03:57] LABS: Basophils % 0.4 %; Eosinophils # 0.2 K/mcL (0.0-0.6); Eosinophils % 3.9 %; Hematocrit 33.4 % (35.3-44.9); Hemoglobin 10.7 g/dL (11.5-15.4); Immature Granulocytes % 0.8 % (0-4); Lymphocytes # 1.4 K/mcL (0.6-4.6); Lymphocytes % 26.5 %; Mean Corpuscular Hemoglobin 29.9 pg (28.0-33.3); Mean Corpuscular Volume 93.3 fL (83.0-100.0); Mean Platelet Volume 9.1 fL (9.4-12.4); Monocytes # 0.6 K/mcL (0.0-1.3); Monocytes % 10.7 %; Platelet Count 168 K/mcL (140-400); Red Blood Count 3.58 M/mcL (3.82-4.97); Red Cell Distribution Width 13.2 % (11.5-14.5); Segmented Neutrophils % 57.7 %; White Blood Count 5.1 K/mcL (4.3-11.1)
[2021-06-01 04:11] LABS: BUN/Creatinine Ratio 18 (6-26); Blood Urea Nitrogen 14 mg/dL (8-23); Calcium 8.9 mg/dL (8.6-10.3); Carbon Dioxide 24 mEq/L (23-29); Chloride 105 mEq/L (98-107); Glucose 94 mg/dL (70-105); Osmolality,Calculated 282 (280-300); Potassium 2.8 mEq/L (3.5-5.1); Sodium 136 mEq/L (136-145); eGFR For African Americans > 60 (> 60); eGFR For Non-African Americans > 60 (> 60)
[2021-06-01] MEDS: *HR* Rivaroxaban 15 MG TABLET PO SCH (08:12)
[2021-06-01] MEDS: Sennosides/Docusate Sodium TABLET PO SCH (08:13)
[2021-06-01 12:47] VITALS: BP 103/70; PULSE 85; TEMP 98.3; O2SAT 96
== END 2021-05-31 14:05 | disposition home health service (06) | DRG 175 ==
LOC: 3NENU 19:11 → EMEROOARM 19:11 → 3NENU 05-27 00:17 → SUATTDRO 05-27 15:08
PROVIDERS: ADMIT Internal Medicine; ATTEND Student in an Organized Health Care Education/Training Program